=== PATIENT | female | born 1975 | race Caucasian/White ===

== ENCOUNTER 2017-10-29 09:36 | Day surgery (SDC) | payer BC ==
[~2017-10-29 09:36] MED LIST: Buffered Lidocaine 0.9% SYRIN* 5 ML/SYR SYRINGE INTRADERM ONE; Famotidine IV* 10 MG/ML 2 ML (20 mg) IV ONE; Metoclopramide TAB* 10 MG PO ONE
[2017-10-29] MEDS ORDERED: Metoclopramide TAB* 10 MG ONE (09:50)
[2017-10-29] MEDS ORDERED: Famotidine IV* 10 MG/ML 2 ML (20 mg) ONE (09:50)
[2017-10-29] MEDS ORDERED: Buffered Lidocaine 0.9% SYRIN* 5 ML/SYR SYRINGE ONE (09:50)
[2017-10-29 10:32] LABS: ABS Basophils 0 10^3/ul (0-0.2); ABS Eosinophils 0.1 10^3/ul (0-0.6); ABS Lymphocytes 1.2 10^3/ul (1.0-4.8); ABS Monocytes 0.7 10^3/ul (0-0.8); ABS Neutrophils 10.9 10^3/ul (1.5-7.7); ABS Nucleated RBC 0 10^3/ul; Eosinophil % 0.6 % (0-6); Hematocrit 44 % (35-47); Hemoglobin 15.1 g/dl (12.0-16.0); Lymphocyte % 9.3 % (25-47); Mean Corpuscular HGB Conc 35 g/dl (31-36); Mean Corpuscular Hemoglobin 30 pg (27-31); Mean Corpuscular Volume 88 fL (80-97); Mean Platelet Volume 7 um3 (7.4-10.4); Nucleated Red Blood Cells % 0; Platelet Count 250 10^3/ul (150-450); Red Blood Count 4.95 10^6/ul (4.0-5.4); Red Cell Distribution Width 13 % (10.5-15)
[2017-10-29] MEDS ORDERED: Midazolam* 1 MG/ML 10 ML VIAL (10 MG) ONE (10:50)
[2017-10-29] MEDS ORDERED: Lidocaine 1% INJ* 10 MG/ML 30 ML SDV ONE (10:54)
[2017-10-29] MEDS ORDERED: fentaNYL* 50 MCG/ML 2 ML VIAL (100 MCG VIAL) ONE (10:56)
[2017-10-29] MEDS ORDERED: Misoprostol TAB* 200 MCG ONE (10:57)
[2017-10-29] MEDS ORDERED: Naloxone* 0.4 MG/ML 1 ML VIAL IV PRN (11:13)
[2017-10-29] MEDS ORDERED: HYDROcodone/ACETAMIN 5-325 MG* 1 TAB PO PRN (11:13)
[2017-10-29] MEDS ORDERED: oxyCODONE/Acetamin 5/325 MG* TAB PO PRN (11:13)
[2017-10-29] MEDS ORDERED: fentaNYL* 50 MCG/ML 2 ML VIAL (100 MCG VIAL) IV PRN (11:13)
[2017-10-29] MEDS ORDERED: Ondansetron INJ* 2 MG/ML VIAL IV PRN (11:13)
[2017-10-29] MEDS ORDERED: Ketorolac INJ* 30 MG/ML 1 ML VIAL ONE (11:14)
[2017-10-29] MEDS ORDERED: Propofol* 10 MG/ML 20 ML BTL IV PUSH ONE (11:14)
[2017-10-29 12:19] VITALS: BP 119/72
--- NOTE | 2017-10-30 12:10 | OP ---
DATE OF OPERATION: 10/29/17 - [facility] DATE OF : 79. SURGEON: Kary Villalpando MD. ANESTHESIA: Sedation with paracervical block. PRE-OP DIAGNOSIS: Missed , 8 weeks 5/7 days, intrauterine . POST-OP DIAGNOSIS: Missed , 8 weeks 5/7 days, intrauterine . OPERATIVE PROCEDURE: Dilation, evacuation, and curettage. ESTIMATED BLOOD LOSS: 200 cc. URINE OUTPUT: 100 cc. FLUIDS: 800 cc of crystalloid. FINDINGS: Revealed intrauterine contents consistent with products of conception. COMPLICATIONS: None apparent. DISPOSITION: Stable to recovery room. DESCRIPTION OF PROCEDURE: The patient was placed in dorsal lithotomy position, legs have been placed in candy cane stirrups. The perineum and vagina were prepped and draped in a sterile standard fashion. The patient was identified with the universal protocol. Self cath was inserted for drainage of clear yellow urine. Self-cath was removed. Sterile speculum was inserted in the vagina. Cervix was visualized and injected with 1% lidocaine in paracervical fashion using 10 cc. A single-tooth tenaculum was placed in the anterior lip. The cervix was dilated to #10 Hegar dilator and a 10 mm curved suction curette was then applied for complete evacuation of the intrauterine contents. Sharp curettage was performed confirming complete evacuation of intrauterine contents. Single-tooth tenaculum was removed. Cytotec 800 mcg was placed transvaginally after removal of sterile speculum. All sponge, instrument, and blade counts were correct throughout the case. The patient tolerated the procedure well and went to recovery room in stable condition. [id number]/[facility] #: [id number] [facility]
== END 2017-10-29 12:41 | disposition home or self-care (01) ==
LOC: OR 09:36
PROVIDERS: ATTEND Obstetrics & Gynecology
DX: O02.1 Missed abortion (principal); E03.9 Hypothyroidism, unspecified; N97.9 Female infertility, unspecified
CPT/HCPCS: 36415; 85025; 86850; 86900; 86901; 88305; A9270-GY; J1885; J2250; J2704; J3010

== ENCOUNTER 2018-09-29 12:02 | Inpatient (IN) | payer BC ==
[2018-09-29] MEDS ORDERED: Buffered Lidocaine 1% SYRIN* 1 ML/SYRINGE INTRADERM ONE (13:48)
[2018-09-29] MEDS ORDERED: Lactated Ringers 1000 ML Bag* 1,000 ML IV ONE ×2 (13:48→22:31)
[2018-09-29] MEDS ORDERED: Lactated Ringers 1000 ML Bag* 1,000 ML IV SCH ×2 (14:00→23:00)
[2018-09-29] MEDS ORDERED: Oxytocin in LR* 20 UNITS/1,000 ML BAG IVPB SCH (14:00)
--- NOTE | 2018-09-29 14:35 | HP ---
General Information - Reason for Visit Term for induction of labor for AMA. - General Information Maternal Age: 40 Grav: 4 Para: 1 SAB: 2 IEA: 0 Estimated Due Date: 10/02/18 Determined By: LMP Maternal Blood Type and Rh: O Positive - Results this Serology/RPR Result: Non-Reactive Rubella Result: Immune HBsAg Result: Negative HIV Result: Negative GBS Culture Result: Negative Past Medical History Delivery History: Hx Uncomplicated Vaginal Delivery Delivery History Comment: SVB 2014 Pertinent Past Medical History: Non-Contributory Past Medical History Comment: hypothyroidism Pertinent Past Surgical History: See Records Past Surgical History Comment: D&C 2015 Pertinent Family History: Non-Contributory Family History Comment: Arthritis Emphysema Breast Ca - Antepartal Records Antepartal Records: Reviewed, Complicated by: - AMA age 43, hypothyroid on replacement Review of Systems Constitutional: Comfortable CV Complaint: No Respiratory: Shortness of Breath: No Gastrointestinal: No Nausea/Vomiting, Normal Bowel Movement Genitourinary: No Dysuria, No Leaking Fluid, Spotting Musculoskeletal: No Complaint Neurological: No Headache, No Visual Changes Movement: Normal Exam Allergies/Adverse Reactions: Allergies seasonal Allergy (Mild, Uncoded 10/29/17 09:33) Runny Nose BP 125/87 T 99.2 HR 85 RR 18 - Measurements Height: 5 ft 4 in Weight: 215 lb Body Mass Index (BMI): 36.8 Pre- Weight: 187 lb - Exam Breast: Breast Exam Deferred CVA: No CVA Tenderness Extremities: No Edema Heart: Normal Rhythm/Heart Sounds HEENT: No Significant Findings Lungs: Clear Bilaterally Rectal: Rectal Exam Deferred Reflexes: DTR 2+, - - no clonus Thyroid: - - WNL on entry to care - Abdominal Exam Abdomen Exam: Non-Tender, Fundal Height Consistent with Dates - Ultrasound/Biophysical Profile Ultrasound Status: Not Done Targeted Exam Findings See L&D Outpatient Visit Provider Note for Findings: N/A Estimated Weight: 8-8.5.b Cervical Exam: 3cm Effacement: 60% Presenting Part: Vertex Membrane Status: Intact Bleeding/Discharge: Bloody Show EFM Findings - External Monitor Findings Baseline Heart Rate: 130 External Monitor Findings: Accelerations Present, No Pattern of Variable or Late Decelerations, Variability Moderate Contractions: Irregular - Rare Assessment/Plan - Assessment IUP @ 39+4 weeks gestation for induction due to age 43. IBOW. No evidence acidemia - Plan Plan: Induction Plan Comment: Admit to L&D. PARQ discussion use of pitocin to initiate contraction pattern. Can consider amniotomy for augmentation as well. Patients in agreement. Will begin low-dose, monitor per protocol. Pain meds as desired. Anticipate SVB. - Date/Time of Admission Date of Admission: 09/29/18 Time of Admission: 14:03
[2018-09-29 14:49] LABS: ABS Basophils 0 10^3/ul (0-0.2); ABS Eosinophils 0.1 10^3/ul (0-0.6); ABS Lymphocytes 1.7 10^3/ul (1.0-4.8); ABS Monocytes 0.7 10^3/ul (0-0.8); ABS Neutrophils 8.1 10^3/ul (1.5-7.7); ABS Nucleated RBC 0 10^3/ul; Eosinophil % 1.1 %; Hematocrit 38 % (35-47); Lymphocyte % 15.8 %; Mean Corpuscular HGB Conc 35 g/dl (31-36); Mean Corpuscular Hemoglobin 29 pg (27-31); Mean Corpuscular Volume 85 fL (80-97); Nucleated Red Blood Cells % 0; Platelet Count 265 10^3/ul (150-450); Red Blood Count 4.43 10^6/ul (4.00-5.40); Red Cell Distribution Width 14 % (10.5-15); White Blood Count 10.6 10^3/ul (3.5-10.8)
--- NOTE | 2018-09-29 18:02 | PN ---
Progress Note - Progress Note Date of Service: 09/29/18 Note: S: Feeling ok, not really feeling contractions yet. Ambulating in halls, will eat dinner. O: VE deferred Pit @ 12 UCs q 2-5 min FHT 135 VSS A: IUP @ 39+4 weeks for induction of labor P: Continue pitocin, consider amniotomy if patient desires.
--- NOTE | 2018-09-29 20:44 | PN ---
Progress Note - Progress Note Date of Service: 09/29/18 Note: S: Patient feels contractions are slightly stronger but still very mild. No further spotting. O: VE 4/80/-1 FHT 130 Cat 1 Pit @ 18 VSS, afebrile UCs Q 2-3 min A: IUP @ 39+3 weeks gestation for induction of labor Cervical change with pitocin No evidence metabolic acidemia P: PARQ discussion of amniotomy for augmentation; patients in agreement. Rupture of membranes done with clear fluid. Reviewed options for pain meds if desired. Patient may desire nitrous and/or epidural.
[2018-09-29] MEDS ORDERED: OBEPIDURAL* 250 ML EPIDURAL ONE (21:55)
[2018-09-29] MEDS ORDERED: Sodium Citrate/Citric Acid* 15 ML UDC PO PRN (22:31)
[2018-09-29] MEDS ORDERED: Famotidine TAB* 20 MG PO PRN (22:31)
[2018-09-29] MEDS ORDERED: EPHEDrine (Pressors)* 50 MG/ML VIAL IV PUSH PRN ×2 (22:31)
[2018-09-29] MEDS ORDERED: Phenylephrine IV* 40 MCG/ML 10 ML SYRINGE IV PUSH PRN ×2 (22:31)
[2018-09-29] MEDS ORDERED: Nalbuphine* 10 MG/ML 1 ML VIAL IV PRN (22:33)
[2018-09-29] MEDS ORDERED: diPHENhydraMINE IV* 50 MG/ML 1 ml VIAL (BENADRYL) IV PRN (22:33)
[2018-09-29] MEDS ORDERED: OBEPIDURAL* 250 ML EPIDURAL SCH (23:00)
--- NOTE | 2018-09-30 02:32 | PROCNOTE ---
[facility] OB: Delivery Note - Delivery A Date of : 09/30/18 Time of : 01:48 [place] Sex: Female Weight at : 8 lb 3 oz Score 1 Minute: 4 Score 5 Minutes: 9 Gestational Age in Weeks and Days at Delivery: 39 Weeks and 5 Days Delivery Method: Spontaneous Vaginal Labor: Spontaneous Did Patient attempt ?: N/A, No Previous Amniotic Fluid: Clear Estimated Blood Loss: 250 Anesthesia/Analgesia: CEI for Labor Delivered By: Kirsten Jenkins - Nursery Level of Nursery: Regular/Bedside - Perineum Perineal Injury: None/Intact Perineal Repair: None - Events Delivery Events of Note: Pitocin During Labor, Pitocin Only After Delivery - Additional Delivery Notes Additional Delivery Notes: Patient requested epidural approx 2145 and received it with good relief, was able to sleep. Approx 0025 patient reported increased pain and rectal pressure with and between contractions. Patient declined vaginal exam but did report some mild urge to push so pushing slowly encouraged. Patient at first blowing through contractions, stating that she "can't push yet" and gradually beginning to push more with each contraction. Baby born OA to [place] @ 0148 with loose nuchal , delivered through and unwrapped after delivery. Baby initially stunned with low tone but HR >100. Dry, stimulation, bulb syringe lead to spontaneous respirations just after 1 minute. Apgars 4, 9. Baby evaluated by special care RN. Cord doubly clamped and cut by FOB once pulsations ceased. Placenta delivered with gentle cord traction at 0157. Fundus firm to massage and pitocin infusing with minimal bleeding. Baby and mother stable.
[2018-09-30] MEDS ORDERED: Dibucaine 1% 28.35 GM TUBE PR PRN (02:33)
[2018-09-30] MEDS ORDERED: Ibuprofen TAB* 600 MG PO PRN (02:33)
[2018-09-30] MEDS ORDERED: Witch Hazel PAD* JAR TOPICAL PRN (02:33)
[2018-09-30] MEDS ORDERED: Acetaminophen TAB* 325 MG PO PRN (02:33)
[2018-09-30] MEDS ORDERED: Glycerin ADULT SUPP PR PRN (02:33)
[2018-09-30] MEDS ORDERED: Lactated Ringers 1000 ML Bag* 1,000 ML IV SCH (03:00)
[2018-09-30] MEDS ORDERED: Oxytocin in LR* 20 UNITS/1,000 ML BAG IVPB SCH (03:00)
[2018-09-30] MEDS: Docusate CAP* 100 MG PO SCH ×3 (08:48→19:49)
[2018-09-30] MEDS: Levothyroxine TAB* 150 MCG TAB PO SCH (09:39)
[2018-10-01] MEDS: Levothyroxine TAB* 150 MCG TAB PO SCH (06:20)
[2018-10-01 07:03] LABS: ABS Basophils 0.1 10^3/ul (0-0.2); ABS Eosinophils 0.2 10^3/ul (0-0.6); ABS Lymphocytes 2.2 10^3/ul (1.0-4.8); ABS Monocytes 0.7 10^3/ul (0-0.8); ABS Nucleated RBC 0 10^3/ul; Eosinophil % 2.1 %; Hematocrit 34 % (35-47); Hemoglobin 11.9 g/dl (12.0-16.0); Lymphocyte % 21.5 %; Mean Corpuscular HGB Conc 35 g/dl (31-36); Mean Corpuscular Hemoglobin 29 pg (27-31); Mean Corpuscular Volume 85 fL (80-97); Mean Platelet Volume 7.9 fL (7.4-10.4); Nucleated Red Blood Cells % 0.1; Platelet Count 208 10^3/ul (150-450); Red Blood Count 4.07 10^6/ul (4.00-5.40); Red Cell Distribution Width 15 % (10.5-15); White Blood Count 10.1 10^3/ul (3.5-10.8)
[2018-10-01] MEDS: Docusate CAP* 100 MG PO SCH (08:00)
[2018-10-01 08:17] VITALS: BP 128/85
[2018-10-01] MEDS ORDERED: Ferrous Gluconate TAB* 324 MG TAB PO SCH (09:00)
== END 2018-10-01 12:50 | disposition home or self-care (01) | DRG 560 ==
LOC: MCHOBOUT 12:02 → MCHOB 14:03
PROVIDERS: ADMIT Advanced Practice Midwife; ATTEND Midwife
PROC: 10E0XZZ Delivery of Products of Conception, External Approach (ICD-10-PCS; principal; 2018-09-30)
PROC: 3E033VJ Introduction of Other Hormone into Peripheral Vein, Percutaneous Approach (ICD-10-PCS; 2018-09-30)
PROC: 10907ZC Drainage of Amniotic Fluid, Therapeutic from Products of Conception, Via Natural or Artificial Opening (ICD-10-PCS; 2018-09-30)
DX: O99.284 Endocrine, nutritional and metabolic diseases complicating childbirth (principal); Z37.0 Single live birth; E03.9 Hypothyroidism, unspecified; O69.81X0 Labor and delivery complicated by cord around neck, without compression, not applicable or unspecified; Z3A.39 39 weeks gestation of pregnancy
CPT/HCPCS: 36415; 85025; 86850; 86900; 86901; A9270-GY